=== PATIENT | male | born 1960 | race Caucasian/White ===

== ENCOUNTER 2022-01-30 16:15 | Emergency (ER) | payer BC ==
[2022-01-30] MEDS ORDERED: Nitroglycerin 0.4 MG Tab.SL SL ONE (16:26)
[2022-01-30 17:09] LABS: PTT,PARTIAL THROMBOPLSTIN TIME 24.2 SEC (20.5-30.9)
[2022-01-30 17:14] LABS: CHLORIDE,CL 104 mmol/L (98-107); SODIUM,NA 140 mmol/L (136-145)
[2022-01-30 17:15] LABS: ANION GAP 12.3 mmol/L (5-15)
[2022-01-30] MEDS ORDERED: Lisinopril 10 MG Tab PO ONE (17:32)
== END 2022-01-30 17:54 | disposition home or self-care (01) ==
LOC: VM.ED 16:15
DX: R07.89 Other chest pain (principal); I10 Essential (primary) hypertension; Z79.899 Other long term (current) drug therapy
CPT/HCPCS: 36415; 71045; 80053; 83735; 83880; 84443; 84484; 85025; 85379; 85610; 85730; 86140; 93005; 93010; 99284; 99285-25; A9270-GY